=== PATIENT | male | born 1960 | race Caucasian/White ===

== ENCOUNTER 2017-12-03 05:34 | Observation (INO) ==
[2017-12-03] MEDS ORDERED: Iohexol 350 MG/ML 50 ML Vial (for Cath Lab) IVCONTRAST ONE (05:35)
[2017-12-03] MEDS ORDERED: Sodium Bicarbonate 8.4% Inj 100 MEQ in Dextrose 5% in Water Inj 900 ML IV.SIG SCH ×2 (07:00)
--- NOTE | 2017-12-03 07:00 | P.PNVS ---
- Pre-operative Note Planned Procedure: IVC filter placement Interval History: Pt has been feeling well, no F/C. Ready for surgery today. No other change in health that would preclude OR. Labs: pending Blood: none needed Imaging: will make in OR Post-operative Destination: DOCU Operative site marked: No Consent: Informed consent has been obtained from Ernie Kelsey. I have explained the procedure in detail and discussed the risks, benefits, and potential complications. All questions have been answered. Patient Contact Information: (T[place]): [phone]
[2017-12-03 07:05] LABS: Calcium 9.3 mg/dL (8.5-10.1); Carbon Dioxide 26.7 meq/L (21.0-32.0); Potassium 4.1 meq/L (3.5-5.1)
[2017-12-03] MEDS ORDERED: Heparin/NS PF Inj 1,000 ML ONE (07:20)
[2017-12-03] MEDS ORDERED: fentaNYL Citrate Inj 100 MCG/2 ML Ampul ONE ×2 (07:24→15:16)
--- NOTE | 2017-12-03 07:39 | P.OP ---
- Preoperative Diagnosis (1) DVT (deep venous thrombosis) - Postoperative Diagnosis (1) DVT (deep venous thrombosis) Date of procedure: 12/03/17 Procedure: IVC filter insertion (Celect) Implants: Celect IVCF (retrievable) Anesthesia: MAC Surgeon: Luis A Hearn MD Estimated blood loss (mL): 5 Pathology: none sent Operation and Findings: Filter placed via R CFV access no complications. Upright and infrarenal location
--- NOTE | 2017-12-03 07:51 | CATHPROC ---
[employer] HIS Report Study Information Study Number Admission Scheduled Start Study Start [id number] Dec 03 2017 5:34AM 12/03/2017 Dec 03 2017 7:07AM [place] Service Electrophysiology Study Admit Source Facility Department Other [facility] Physician and Clinical Staff Initial Luis A Dillard Orthodontist Small Business Owner Alessandro Cuevas,RN Recorder Rupal Murphy RCIS TECH2 Scrub Hosterman, Romero,RT(R) Procedures Performed Procedure Location (Site) Vessel Name Angiogram (manual) IVC Vena Cava Periph stent IVC Vena Cava Wire insertion Fem Vein (right) Femoral Vein Equipment Time Page Designer Description Size Mfg Part Number Used/Scraped INTRODUCER SET, 07:12 [employer] FR 5 [id number] *[id number] Used MICROPUNCTURE STIFF WIRE, STORQ STANDARD MOD J [id number] 07:15 CORDIS/ CROW 300CM Used 300CM *[id number] 07:12 [employer] BLANKET,WARM AIR CCL * Used *[id number] 07:12 [employer] PACK, CCL CUSTOM * Used *[id number] 07:12 [employer] OMNIPAQUE, 300 MG, 150ML 150ML [id number] Used 07:12 [employer] OMNIPAQUE, 300 MG, 50ML 50ML [id number] Used History: Allergies Allergy Reaction No Known Allergies History: Risk Factors Hypertension Dyslipidemia Yes Yes Chronic Lung Disease Medication Medication Total Dose (Bolus/Oral) Medication Total Dosage/Unit 1% XYLOCAINE 20 mL FENTANYL 50 mcg VERSED 1.5 mg Medications (Bolus/Oral) Medication Time Given Dosage/Unit Administered By Reason 1% XYLOCAINE 12/03/2017 7:24:08 AM 20 mL Luis A Hearn 20 mL 1% XYLOCAINE given in lab by Luis A Hearn in Right Groin via Subcutaneous. Ordered by Luis A Hearn. VERSED 12/03/2017 7:25:10 AM 1 mg Mason, Alessandro 1 mg VERSED given in lab by Alessandro Cuevas RN in Right Antecubital via Peripheral IV. Ordered by Luis A Key. FENTANYL 12/03/2017 7:27:36 AM 50 mcg Mason, Alessandro 50 mcg FENTANYL given in lab by Alessandro Cuevas RN in Right Antecubital via Peripheral IV. Ordered by Robert. Ricky VERSED 12/03/2017 7:30:59 AM 0.5 mg Mason, Alessandro 0.5 mg VERSED given in lab by Alessandro Cuevas RN in Right Antecubital via Peripheral IV. Ordered by Luis A Gaffney. Medication (Drip) Medication Time Given Dosage/Unit Concentration/Unit Diluent (ml) Solution ANCEF 12/03/2017 7:17:43 AM 2 g 2 g ANCEF given in lab by Alessandro Cuevas RN in Right Antecubital via Peripheral IV. Ordered by Luis A Hearn. IV Solutions 12/03/2017 7:12:08 AM 0 mL (IV) 500 NaCl .9 IV Solutions given in lab by Alessandro Cuevas RN in Right Antecubital via Peripheral IV. Pump/Drip Flow = 20 ml/hr using NaCl .9. Ordered by Luis A Hearn. Initial Case Assessment Cardiovascular HR Rhythm NIBP Chest Pain 58 sr 162/88 0 Neurological State Oriented to time-place- Alert Moves all extremities person Respiration - General Respiration Rate SpO2 (%) (B/min) 18 98 Chronological Log Time Study Chronological Log 7:03:55 MD arrived. 7:05:42 Patient arrived via Bed. 7:05:52 Patient Name, D.O.B, / Armband Verified By R.N. 7:10:59 Consent signed by the physician and the patient and verified by the [facility] staff. 7:11:00 Pre-op and post- op instructions given; patient acknowledges understanding of instructions . 7:11:01 Verbal Stimulation=2 Physical Stimulation=2 Airway=2 Respiration=2 TOTAL=8. (0=absent, 1=jarrell ited, 2=present) 7:12:01 Presedation assessment performed by [facility] RN. 7:12:04 Patient has been NPO for More than 6Hrs. 7:12:05 Skin Breakdown-none 7:12:07 Enrico Prominences Protected 7:12:07 A # 20 IV was noted in the Antecubital (right). Grade = 0 IV Solutions given in lab by Alessandro Cuevas RN in Right Antecubital via Peripheral IV. Pump/Drip Flow = 20 ml/hr using 7:12:08 NaCl .9. Ordered by Luis A Hearn. 7:12:10 History and physical on the chart or being dictated. Vitals capture started with the following parameters, Patient=Adult, Interval=5 min, Initial Pre yikjk=699 mmHg, 7:12:13 Deflation Rate=5 mmHg, Cuff placed on Left Arm 7:17:43 2 g ANCEF given in lab by Alessandro Cuevas, RN in Right Antecubital via Peripheral IV. Ordered Luis A Roy. Vitals capture started with the following parameters, Patient=Adult, Interval=5 min, Initial Pre ggbzi=624 mmHg, 7:17:55 Deflation Rate=5 mmHg, Cuff placed on Left Arm 7:18:39 HR=58 bpm, IYXA=917/88 mmhg, SpO2=98.0 %, Resp=11 B/min Assessment: Initial Case, HR=58 BPM, Rhythm=sr, RVSD=760/88 mmhg, Chest Pain=0 7:19:14 Neurological: State=Alert, Ox3, GALVEZ Respiration: Resp=18 B/min, SpO2=98 % 7:20:49 Bilateral groins prepped with 2% chlorhexidine, and draped after a 3 minute waiting time. Time Out. Correct patient, correct procedure, correct physician, labs, allergies, and equipment verified with laborer syrup machine 7:24:05 team present. Fire risk assesment completed (see hard stop sheet for coding). Time Out Concu rred by MD and individual staff in procedure. 7:24:06 Case Start 7:24:08 20 mL 1% XYLOCAINE given in lab by Luis A Hearn in Right Groin via Subcutaneous. Ordered Luis A Roy. 7:24:23 HR=61 bpm, LGCB=620/87 mmhg, SpO2=99.0 %, Resp=13 B/min 7:25:10 1 mg VERSED given in lab by Alessandro Cuevas, RN in Right Antecubital via Peripheral IV. Ordered by Luis A Hearn. 7:26:03 Access site was Right Femoral Vein. A INTRODUCER SET, MICROPUNCTURE STIFF FR 5 was advanced into the Fem Vein (right) using the Perc utaneous 7:26:15 technique. A sheath was exchanged in the Fem Vein (right). This was necessary in order to accomodate a larg er catheter. [employer] 7:26:47 [place] Vena Cava Filter Introducer sheath. 7:27:00 A WIRE, STORQ STANDARD MOD J 300CM 300CM was inserted via Fem Vein (right). 7:27:36 50 mcg FENTANYL given in lab by Alessandro Cuevas, RN in Right Antecubital via Peripheral IV. Ord ered by Luis A Hearn. A implantable was advanced through a catheter over a WIRE, STORQ STANDARD MOD J 300CM 300CM. Heddle Machine Operator k Select 7:28:26 [place] Vena Cava Filter [id number] (EXP 10/24/2020 LOT# [id number]) 7:28:41 HR=64 bpm, RHAR=028/148 mmhg, SpO2=97.0 %, Resp=12 B/min 7:29:07 NIBP STAT measurement started. 7:29:50 HR=55 bpm, TUXU=779/84 mmhg, SpO2=97.0 %, Resp=11 B/min 7:30:59 0.5 mg VERSED given in lab by Alessandro Cuevas RN in Right Antecubital via Peripheral IV. Order ed by Luis A Hearn. 7:31:19 IVC angiogram, manually injected. 7:31:44 A implantable was deployed in the IVC. 7:32:45 IVC angiogram, manually injected. 7:33:30 Peripheral Vascular Intervention Performed. 7:33:46 HR=60 bpm, JPDJ=566/74 mmhg, SpO2=96.0 %, Resp=17 B/min 7:33:54 Case End (Physician broke scrub) 7:34:16 Sheath removed; pressure applied to access site. 7:38:41 HR=60 bpm, OESS=386/83 mmhg, SpO2=97.0 %, Resp=19 B/min 7:43:40 HR=59 bpm, GORX=883/88 mmhg, SpO2=97.0 %, Resp=19 B/min 7:45:20 Hemostasis obtained. 7:45:53 Sterile dressing applied to site 7:47:05 Patient moved to bed. 7:48:09 Vitals capture stopped. 7:49:16 Patient transported to DOCU. End Study - Contrast Media Used In Study Contrast Total Opened (mL) Total Used (mL) Total Wasted (mL) Omnipaque 15 15 0 End Study - Radiation Exposure Fluoro Time Fluoro Dose (mGy) Cine Dose (uGym2) (minutes) 1.2 140 4849 End Study - Patient Disposition Complications Transferred To Interventional Outcome No Outpatient Bed successful
--- NOTE | 2017-12-03 09:12 | MP ---
cc: Luis A Hearn MD DATE OF OPERATION: 12/03/2017 PREOPERATIVE DIAGNOSIS: Deep venous thrombosis, need for orthopedic surgery. POSTOPERATIVE DIAGNOSIS: Deep venous thrombosis, need for orthopedic surgery. PROCEDURE PERFORMED: Inferior vena cava filter placement. ATTENDING SURGEON: Luis A Hearn MD ANESTHESIA: Local with sedation. INDICATIONS: Mr. Kelsey is a 57-year-old gentleman with left lower extremity DVT for which he is on anticoagulation. He is scheduled for a knee repair today and we were asked to place a prophylactic IVC filter. DESCRIPTION OF PROCEDURE; A thorough discussion was had with the patient about the risks and benefits of a filter placement as well as the potential for retrieval and he agreed. He proceeded to the operating room, was placed supine on the operating table. An appropriate timeout was taken to ensure the patient's identity, operative site and planned procedure. The administration of 2 grams of Ancef was administered prior to skin incision and will be discontinued after a single preoperative dose. Everyone in the room agreed with the timeout and we proceeded. His bilateral groins were prepped and draped. The right groin was anesthetized with 1% lidocaine. A 21-gauge micropuncture needle was used to access the right common femoral vein. This was exchanged using Seldinger technique for the micropuncture sheath, through which a 0.035 STORQ wire was introduced and the micropuncture sheath exchanged for the Celect filter sheath. A venacavogram was obtained that showed the location of the renal veins; they were marked on the screen and the sheath was advanced to just below the renal veins and the filter was inserted and deployed without difficulty. Completion venacavogram showed the filter to be upright in the infrarenal location. The sheath was removed and pressure held for hemostasis. There were no complications. I was present and scrubbed and performed the entire procedure. MD DEBORA Floyd/KAMLESH , 09:01 AM , 09:11 AM
[2017-12-03] MEDS ORDERED: Neostigmine Inj 5 MG/5 ML Syringe IV.PUSH ONE (12:00)
[2017-12-03] MEDS ORDERED: Glycopyrrolate Inj 1 MG/5 ML Syringe IV.PUSH ONE (12:00)
[2017-12-03] MEDS ORDERED: Lidocaine PF 1% Inj 5 ML Syringe INFILTRATN ONE (12:00)
[2017-12-03] MEDS ORDERED: Famotidine PF Inj 20 MG/2 ML Vial ONE (12:02)
[2017-12-03] MEDS ORDERED: Vancomycin Inj 1 GM/200 ML PIGGYBACK IV.SIG ONE (12:09)
[2017-12-03] MEDS ORDERED: ceFAZolin 2 GM Premix Inj 2 GM/50 ML PIGGYBACK IV.SIG ONE (12:09)
[2017-12-03] MEDS ORDERED: Bupivacaine/Epinephrine Inj 0.25% 50 ML Vial ONE (12:55)
[2017-12-03] MEDS ORDERED: Chlorhexidine 4% Topical 120 APPLIC/120 ML Bottle TOPICAL SCH (13:00)
[2017-12-03] MEDS ORDERED: Chlorhexidine Gluconate 2% 1 Pack (2 Cloths) TOPICAL SCH (13:00)
[2017-12-03] MEDS ORDERED: ceFAZolin 2 GM Premix Inj 2 GM/50 ML PIGGYBACK IV.SIG SCH (13:00)
[2017-12-03] MEDS ORDERED: Metoprolol Tartrate 25 MG Tablet PO SCH (13:00)
[2017-12-03] MEDS ORDERED: Sodium Chlor 0.9% Inj 500 ML IV.SIG SCH (13:00)
[2017-12-03] MEDS ORDERED: Morphine Inj 4 MG/ML Vial IV.PUSH PRN (14:48)
[2017-12-03] MEDS ORDERED: Bisacodyl 10 MG Supp RECTAL PRN (14:48)
[2017-12-03] MEDS ORDERED: Aluminum/Magnesium/Simethacone Susp 30 ML UDC PO PRN (14:48)
[2017-12-03] MEDS ORDERED: Post-op Orders (for Pharmacy) OTHER STA (14:48)
--- NOTE | 2017-12-03 14:56 | P.OP ---
- Preoperative Diagnosis (1) Patellar tendon rupture Comment: Left knee - Postoperative Diagnosis (1) Patellar tendon rupture Comment: Left knee Date of procedure: 12/03/17 Procedure: Left knee patella tendon repair Anesthesia: GETA Surgeon: Ibrahima Moreira MD Cns: CARL Figueroa The surgical procedure was assisted by my Advanced Registered Nurse Practitioner. My AERONAUTICAL DRAFTER presence was necessary throughout this case for the manipulation and positioning of the surgical extremity. My AERONAUTICAL DRAFTER was assisting me throughout the duration of this procedure. The skill set of an Advance Registered Nurse Practitioner was medically necessary to complete this procedure. During the surgical case, the surgical instruments inspector was working at the back table and the Advance Registered Nurse Practitioner was directly assisting me. Estimated blood loss (mL): 200 Tourniquet time (min): 0 Operation and Findings: Tourniquet time: 0 minutes at 250 mmHg of pressure This patient has a recent DVT. He was taken off of his Xarelto for 2 days. The patient this morning had a removable IVC filter placed by the vascular surgeon. The patient received intravenous vancomycin and Ancef. After the appropriate anesthesia was administered, the patient's leg was prepped and draped in the usual sterile fashion. We made a standard incision on the anterior aspect of the knee. We identified a full-thickness tear of the proximal patella tendon along with a small portion of avulsed patella associated with the displaced tendon tear. We evacuated a large amount of seroma. We did not identify infection. We thoroughly irrigated. We used a rongeur to prepare the distal end of the patella. We also cleaned off the proximal tendon region as well. We performed repair by placing 2 individual #2 fiber wires in up-and-down baseball stitch locking suture pattern within the entire patella tendon itself, leaving 4 limbs out of the proximal patella tendon. We drilled 3 holes in the patella with a drill bit. We made a small longitudinal incision in the quadriceps tendon to retrieve the sutures through these 3 holes. We placed the medial suture through the medial hole, the lateral suture through the lateral hole, and the 2 central sutures through the central hole. We then tied these sutures with the knee in full extension anatomically repairing the patella tendon. We then tied the sutures to themselves. The patient's knee was put through a range of motion from 0-90 and the tendon was stable. We repaired the retinaculum on the medial and lateral side with 0 Vicryl. We repaired the longitudinal splits of the quadriceps tendon with 0 Vicryl. The knee was thoroughly irrigated. Note that we had given 1/4% Marcaine with epinephrine into the skin at the beginning of the case. Skin was closed with 2- 0 Vicryl and isabela. The postoperative plan is for weightbearing as tolerated to the extremity with a canvas knee splint. Additionally the patient will restart his Xarelto tomorrow. Ultimately the plan is that once the patient recovers from the surgery then the vascular surgeon has planned to remove the IVC filter.
[2017-12-03] MEDS ORDERED: *morphine SULFATE 10 MG/ML PERIprocedure ONLY ONE (15:24)
[2017-12-03] MEDS ORDERED: Multivitamin/Minerals Therapeutic Tablet PO SCH (21:00)
[2017-12-03] MEDS ORDERED: Senna/Docusate Sodium 8.6/50 MG Tablet PO SCH (21:00)
[2017-12-03] MEDS ORDERED: Zolpidem Tartrate 5 MG Tablet PO PRN (21:00)
[2017-12-04] MEDS ORDERED: Rivaroxaban 20 MG Tablet PO SCH (14:00)
--- NOTE | 2017-12-04 18:41 | ECG ---
Date Performed: 12/03/2017 Time Performed: 12:26:19 PTAGE: 57 years EKG: Sinus rhythm WITH SINUS ARRHYTHMIA NONSPECIFIC T-WAVE ABNORMALITY BORDERLINE ECG NO PREVIOUS TRACING DOCTOR: Fran Avendaño Interpretating Date/Time 12/04/2017 18:40:17
== END 2017-12-03 17:25 | disposition home or self-care (01) ==
LOC: HCAT 05:34 → HDIC 05:34
PROVIDERS: ADMIT Surgery; ATTEND Surgery
DX: Z96.651 Presence of right artificial knee joint; S76.112A Strain of left quadriceps muscle, fascia and tendon, initial encounter; Z01.810 Encounter for preprocedural cardiovascular examination; Z79.01 Long term (current) use of anticoagulants; S82.032A Displaced transverse fracture of left patella, initial encounter for closed fracture; I82.402 Acute embolism and thrombosis of unspecified deep veins of left lower extremity